=== PATIENT | female | born 1940 | race Caucasian/White ===

== ENCOUNTER 2021-01-06 07:42 | Inpatient (IN) ==
[2021-01-06] MEDS ORDERED: NS 0.9% 500 ml BAG 500 ML IV ONE (09:28)
[2021-01-06 10:12] LABS: Hematocrit 27 % (35-47); Mean Corpuscular HGB Conc 33 g/dL (31-36); Mean Corpuscular Hemoglobin 29 pg (27-31); Mean Corpuscular Volume 88 fL (80-97); Mean Platelet Volume 6.7 fL (7.4-10.4); Platelet Count 515 10^3/uL (150-450); Red Blood Count 3.07 10^6 /uL (3.70-4.87); Red Cell Distribution Width 17 % (10-15); White Blood Count 11.1 10^3/uL (3.5-10.8)
[2021-01-06 10:18] LABS: ABS Lymphocytes 0.8 10^3/ul (1.0-4.8); ABS Monocytes 0.7 10^3/ul (0-0.8); ABS Neutrophils 9.6 10^3/ul (1.5-7.7); Lymphocyte % 6.8 %
[2021-01-06 10:28] LABS: Calcium 7.8 mg/dL (8.6-10.3); EGFR African American 217.3 (>60); EGFR Non-African American 179.6 (>60)
[2021-01-06 10:45] LABS: RBC Morphology Normal (Normal)
[2021-01-06 11:25] LABS: Potassium 4.2 mmol/L (3.5-5.0)
[2021-01-06 11:35] LABS: Urine Appearance Turbid; Urine Bilirubin Negative (Negative); Urine Blood 1+ (Negative); Urine Color Amber; Urine Glucose Negative (Negative); Urine Ketones Negative (Negative); Urine Nitrite Negative (Negative); Urine Protein 1+(30 mg/dL) (Negative); Urine Specific Gravity 1.055 (1.002-1.030); Urine Urobilinogen Negative (Negative)
[2021-01-06 12:07] LABS: Urine Bacteria 2+ (Absent); Urine Red Blood Cell 3+(>10/hpf) (Absent); Urine Squamous Epithelial Cell Present (Absent); Urine White Blood Cell 3+(>20/hpf) (Absent); Urine Yeast Present (Absent)
[2021-01-06] MEDS: NS 0.9% 1000 ml BAG 1,000 ML IV SCH (13:29)
[2021-01-06] MEDS ORDERED: Pantoprazole 80 mg in NS BAG 80 MG/250 ML BAG IV ONE (15:30)
[2021-01-06] MEDS ORDERED: PEG 3000 GI LAVAGE 1 GALLON PO ONE (15:44)
[2021-01-06] MEDS ORDERED: Morphine 2 MG/ML SYRINGE IV PRN (16:04)
[2021-01-06 16:13] LABS: Hematocrit 26 % (35-47); Hemoglobin 8.7 g/dL (12.0-16.0); Mean Corpuscular HGB Conc 34 g/dL (31-36); Mean Corpuscular Hemoglobin 30 pg (27-31); Mean Corpuscular Volume 88 fL (80-97); Mean Platelet Volume 6.5 fL (7.4-10.4); Platelet Count 439 10^3/uL (150-450); Red Cell Distribution Width 16 % (10-15); White Blood Count 6.6 10^3/uL (3.5-10.8)
[2021-01-06 16:39] LABS: ABS Lymphocytes 0.9 10^3/ul (1.0-4.8); ABS Monocytes 0.5 10^3/ul (0-0.8); ABS Neutrophils 5.1 10^3/ul (1.5-7.7); Eosinophil % 0.2 %
[2021-01-06] MEDS ORDERED: Dextrose 50% Syringe 50 ml 25 GM/50 ML SYRINGE IV PUSH PRN (17:14)
[2021-01-06] MEDS: Morphine 2 MG/ML SYRINGE IV PRN (19:00)
[2021-01-06] MEDS: cefTRIAXone 1 gm/50 mL NS BAG 1 GM/50 ML BAG IVPB SCH (21:30)
[2021-01-07] MEDS: Morphine 2 MG/ML SYRINGE IV PRN ×3 (00:58→21:24)
[2021-01-07 01:02] LABS: Hematocrit 22 % (35-47); Hemoglobin 7.5 g/dL (12.0-16.0)
[2021-01-07] MEDS: Lidocaine PATCH 5% PATCH TRANSDERM SCH ×2 (02:12→08:00)
[2021-01-07 05:42] LABS: Hematocrit 27 % (35-47); Hemoglobin 9.3 g/dL (12.0-16.0); Mean Corpuscular HGB Conc 34 g/dL (31-36); Mean Corpuscular Hemoglobin 30 pg (27-31); Mean Corpuscular Volume 89 fL (80-97); Mean Platelet Volume 6.3 fL (7.4-10.4); Platelet Count 391 10^3/uL (150-450); Red Blood Count 3.07 10^6 /uL (3.70-4.87); Red Cell Distribution Width 16 % (10-15)
[2021-01-07 05:59] LABS: Blood Urea Nitrogen 15 mg/dL (6-24); CO2 Carbon Dioxide 20 mmol/L (22-32); Calcium 7.5 mg/dL (8.6-10.3); EGFR African American 259.7 (>60); EGFR Non-African American 214.6 (>60); Glucose 77 mg/dL (70-100); Potassium 3.4 mmol/L (3.5-5.0); Sodium 142 mmol/L (135-145)
[2021-01-07 06:04] LABS: Anion Gap 9 mmol/L (2-11); Chloride 113 mmol/L (101-111)
[2021-01-07 06:07] LABS: ABS Eosinophils 0.1 10^3/ul (0-0.6); ABS Lymphocytes 0.8 10^3/ul (1.0-4.8); ABS Monocytes 0.4 10^3/ul (0-0.8); ABS Neutrophils 3.6 10^3/ul (1.5-7.7); Eosinophil % 1.2 %; Lymphocyte % 16.1 %; Nucleated Red Blood Cells % 0.1
[2021-01-07] MEDS: NS 0.9% 1000 ml BAG 1,000 ML IV SCH (06:07)
[2021-01-07] MEDS ORDERED: HYDROmorphone 0.5 MG/0.5 ML SYRINGE IV SLOW PU ONE (07:34)
[2021-01-07 08:12] LABS: Hematocrit 28 % (35-47); Hemoglobin 9.6 g/dL (12.0-16.0)
[2021-01-07] MEDS ORDERED: Potassium Chlor 20 meq TAB.ER PO ONE (08:25)
[2021-01-07] MEDS: Lidocaine Patch REMOVE PATCH PATCH OFF SCH ×2 (09:27→22:18)
[2021-01-07] MEDS: cefTRIAXone 1 gm/50 mL NS BAG 1 GM/50 ML BAG IVPB SCH (15:52)
[2021-01-07] MEDS: Polyethylene Glycol 3350 17 GM PACKET PO SCH (21:24)
[2021-01-07] MEDS: Senna TAB 8.6 mg TAB PO SCH (21:24)
[2021-01-07 22:41] LABS: Hematocrit 30 % (35-47); Hemoglobin 9.7 g/dL (12.0-16.0)
[2021-01-08] MEDS: NS 0.9% 1000 ml BAG 1,000 ML IV SCH ×2 (02:35→08:57)
[2021-01-08 06:59] LABS: Blood Urea Nitrogen 8 mg/dL (6-24); CO2 Carbon Dioxide 22 mmol/L (22-32); Calcium 7.4 mg/dL (8.6-10.3); EGFR African American 259.7 (>60); EGFR Non-African American 214.6 (>60); Glucose 93 mg/dL (70-100); Potassium 3.7 mmol/L (3.5-5.0); Sodium 141 mmol/L (135-145)
[2021-01-08 07:02] LABS: Anion Gap 7 mmol/L (2-11); Chloride 112 mmol/L (101-111)
[2021-01-08] MEDS: Lidocaine PATCH 5% PATCH TRANSDERM SCH (07:58)
[2021-01-08] MEDS: Polyethylene Glycol 3350 17 GM PACKET PO SCH ×2 (07:58→21:03)
[2021-01-08 08:09] LABS: Hematocrit 29 % (35-47); Hemoglobin 9.8 g/dL (12.0-16.0); Mean Corpuscular HGB Conc 34 g/dL (31-36); Mean Corpuscular Hemoglobin 30 pg (27-31); Mean Corpuscular Volume 89 fL (80-97); Mean Platelet Volume 6.2 fL (7.4-10.4); Platelet Count 379 10^3/uL (150-450); Red Blood Count 3.27 10^6 /uL (3.70-4.87); Red Cell Distribution Width 16 % (10-15)
[2021-01-08 08:35] LABS: ABS Eosinophils 0.1 10^3/ul (0-0.6); ABS Lymphocytes 0.8 10^3/ul (1.0-4.8); ABS Monocytes 0.6 10^3/ul (0-0.8); ABS Neutrophils 5.6 10^3/ul (1.5-7.7); Eosinophil % 1.3 %; Lymphocyte % 10.7 %
[2021-01-08 14:45] LABS: Hematocrit 29 % (35-47)
[2021-01-08] MEDS: cefTRIAXone 1 gm/50 mL NS BAG 1 GM/50 ML BAG IVPB SCH (15:25)
[2021-01-08] MEDS: Morphine 2 MG/ML SYRINGE IV PRN (20:51)
[2021-01-08] MEDS: Senna TAB 8.6 mg TAB PO SCH (21:03)
[2021-01-08] MEDS ORDERED: fentaNYL PATCH 12 MCG/HR 1 PATCH TRANSDERM SCH (22:00)
[2021-01-08 22:14] LABS: Hematocrit 27 % (35-47); Hemoglobin 9.3 g/dL (12.0-16.0)
[2021-01-08] MEDS: Lidocaine Patch REMOVE PATCH PATCH OFF SCH (23:52)
[2021-01-09] MEDS: fentaNYL Patch Check Q Shift NOTE FOLLOW UP SCH ×2 (00:13→07:12)
[2021-01-09] MEDS: Morphine 2 MG/ML SYRINGE IV PRN ×2 (00:37→13:14)
[2021-01-09] MEDS: NS 0.9% 1000 ml BAG 1,000 ML IV SCH (05:31)
[2021-01-09] MEDS: Polyethylene Glycol 3350 17 GM PACKET PO SCH (09:41)
[2021-01-09] MEDS: Lidocaine PATCH 5% PATCH TRANSDERM SCH (09:41)
[2021-01-09 10:29] LABS: ABS Eosinophils 0.1 10^3/ul (0-0.6); ABS Lymphocytes 0.7 10^3/ul (1.0-4.8); ABS Monocytes 0.4 10^3/ul (0-0.8); ABS Neutrophils 5.5 10^3/ul (1.5-7.7); Eosinophil % 1.6 %; Hematocrit 30 % (35-47); Hemoglobin 10.2 g/dL (12.0-16.0); Mean Corpuscular HGB Conc 34 g/dL (31-36); Mean Corpuscular Hemoglobin 31 pg (27-31); Mean Corpuscular Volume 89 fL (80-97); Mean Platelet Volume 6.6 fL (7.4-10.4); Nucleated Red Blood Cells % 0.1; Platelet Count 422 10^3/uL (150-450); Red Blood Count 3.34 10^6 /uL (3.70-4.87); Red Cell Distribution Width 16 % (10-15); White Blood Count 6.6 10^3/uL (3.5-10.8)
[2021-01-09 11:27] LABS: Anion Gap 5 mmol/L (2-11); Blood Urea Nitrogen 4 mg/dL (6-24); CO2 Carbon Dioxide 23 mmol/L (22-32); Calcium 7.6 mg/dL (8.6-10.3); Chloride 108 mmol/L (101-111); EGFR African American 259.7 (>60); EGFR Non-African American 214.6 (>60); Glucose 103 mg/dL (70-100); Potassium 3.4 mmol/L (3.5-5.0); Sodium 136 mmol/L (135-145)
[2021-01-09] MEDS ORDERED: Potassium Chlor 20 meq TAB.ER PO ONE (11:28)
[2021-01-09] MEDS ORDERED: cefTRIAXone 1 gm/50 mL NS BAG 1 GM/50 ML BAG IVPB SCH (12:45)
[2021-01-09 16:08] VITALS: BP 118/58
== END 2021-01-09 17:10 | DRG 385 ==
LOC: MED 07:42 → ED 07:42 → MED 18:27
PROVIDERS: ADMIT Internal Medicine; ATTEND Internal Medicine